=== PATIENT | male | born 1945 | race Caucasian/White ===

== ENCOUNTER 2020-09-04 14:48 | Inpatient (IN) | payer OTHER ==
[2020-09-04] MEDS ORDERED: SODIUM CHLORIDE 1,000 ML IV ONE (15:19)
[2020-09-04 15:54] LABS: VENOUS BASE EXCESS 9.2 mmol/L (-2-2); VENOUS O2 SATURATION 60.6 % (70-80); VENOUS PH 7.41 (7.310-7.410)
[2020-09-04 16:01] LABS: BASO % 0.4 % (0-2.0); EOS % 0.8 % (0-4.5); HEMATOCRIT 24.5 % (35.4-49); HEMOGLOBIN 7.6 GM/dL (11.7-16.9); LYMPH % 7.4 % (8-40); MCH 27.6 pg (25.7-33.7); MCHC 31.1 g/dl (32.0-35.9); MEAN CELL VOLUME 88.7 fl (80-96); MEAN PLT VOLUME 8.6 fl (7.5-11.1); NEUT % 85.4 % (42.8-82.8); PLATELET COUNT 392 K/MM3 (134-434); RBC 2.76 M/mm3 (4.00-5.60); RDW 15.9 % (11.9-15.9); WHITE BLOOD COUNT 12.8 K/mm3 (4.0-10.0)
[2020-09-04 16:14] LABS: CHLORIDE 114 mmol/L (98-107); SODIUM 152 mmol/L (136-145)
[2020-09-04 16:17] LABS: ALBUMIN 1.9 g/dl (3.4-5.0); ANION GAP 4 MMOL/L (8-16); CALCIUM 9.7 mg/dL (8.5-10.1); CO2 33 mmol/L (21-32)
[2020-09-04 16:18] LABS: BLOOD UREA NITROGEN 77.2 mg/dL (7-18); GLUCOSE,RANDOM 191 mg/dL (74-106)
[2020-09-04 16:20] LABS: SGOT/AST 24 U/L (15-37); SGPT/ALT 18 U/L (13-61)
[2020-09-04 16:21] LABS: CREATININE 0.9 mg/dL (0.55-1.3)
[2020-09-04 16:22] LABS: BILIRUBIN,TOTAL 0.2 mg/dL (0.2-1); TOT PROT 6.8 g/dl (6.4-8.2)
[2020-09-04 16:23] LABS: ALK PHOS 91 U/L (45-117); LACTIC ACID 2.1 mmol/L (0.4-2.0)
[2020-09-04 16:49] LABS: INR 1.57 (0.83-1.09); PROTHROMBIN TIME (PATIENT) 19.1 SEC (9.7-13.0)
[2020-09-04 16:53] LABS: ACTIVATED PTT 37.9 SECONDS (25.2-36.5)
[2020-09-04 18:53] LABS: EPI CELLS >36 /uL (0-25.1); HYALINE CASTS 25 /uL (0-3.1); PH,URINE 6.5 (5.0-8.0); URINE APPEARANCE TURBID; URINE BILIRUBIN 1+ (NEGATIVE); URINE COLOR RED; URINE GLUCOSE (UA) NEGATIVE (NEGATIVE); URINE KETONE NEGATIVE (NEGATIVE); URINE LEUK ESTERASE 2+ (NEGATIVE); URINE NITRITE POSITIVE (NEGATIVE); URINE PROTEIN 3+ (NEGATIVE); URINE UROBILINOGEN 0.2 mg/dL (0.2-1.0); URINE WBC 300 /uL (0-25.8)
[2020-09-04 19:21] LABS: URINE BACTERIA 29.6 /uL (0-1359); URINE RBC 44925 /uL (0-23.9)
[2020-09-04] MEDS ORDERED: VANCOMYCIN 1 GM in D5W (PRE-DOCKED) 1,000 MG/250 ML IVPB ONE (19:54)
[2020-09-04] MEDS ORDERED: PIPERACILLIN/TAZOB 4.5 GM 4.5 GM in DEXTROSE 5%-WATER 100 ML IVPB ONE (19:54)
[2020-09-04] MEDS ORDERED: PIPERACILLIN/TAZOB 4.5 GM 4.5 GM/100 ML BAG IVPB ONE (19:57)
[2020-09-04] MEDS ORDERED: VANCOMYCIN 1 GRAM (PRE-DOCKED) 1,000 MG/250 ML BAG IVPB ONE (19:58)
[2020-09-04] MEDS ORDERED: LACTATED RINGERS SOLUTION 1000 ML INFUS.BAG IV STA (19:58)
[2020-09-04] MEDS ORDERED: LACTATED RINGERS SOLUTION 1,000 ML/1,000 ML INFUS.BAG IV SCH (20:00)
[2020-09-04] MEDS ORDERED: ACETAMINOPHEN 1000 MG/100 ML VIAL (NON FORMULARY) IVPB ONE (21:07)
[2020-09-04] MEDS ORDERED: ACETAMINOPHEN INJECTION 100 ML IVPB ONE (21:15)
[2020-09-04] MEDS ORDERED: DEXAMETHASONE SOD PHOSPHATE 10 MG/1 ML VIAL IVPUSH ONE (21:30)
[2020-09-04] MEDS ORDERED: DEXAMETHASONE SOD PHOSPHATE 10 MG/1 ML VIAL ONE (22:02)
[2020-09-05 03:46] LABS: HEMOGLOBIN 7.2 GM/dL (11.7-16.9); MCH 27.9 pg (25.7-33.7); MCHC 31.3 g/dl (32.0-35.9); MEAN PLT VOLUME 8.7 fl (7.5-11.1); PLATELET COUNT 288 K/MM3 (134-434); RBC 2.58 M/mm3 (4.00-5.60); RDW 16.2 % (11.9-15.9); WHITE BLOOD COUNT 9.2 K/mm3 (4.0-10.0)
[2020-09-05 04:06] LABS: CALCIUM 9.3 mg/dL (8.5-10.1)
[2020-09-05 04:07] LABS: ALBUMIN 1.6 g/dl (3.4-5.0); BLOOD UREA NITROGEN 64.3 mg/dL (7-18)
[2020-09-05 04:10] LABS: CREATININE 0.8 mg/dL (0.55-1.3)
[2020-09-05 04:12] LABS: BILIRUBIN,TOTAL 0.2 mg/dL (0.2-1); TOT PROT 5.8 g/dl (6.4-8.2)
[2020-09-05] MEDS ORDERED: PIPERACILLIN/TAZOB 3.375 GM 3.375 GM/50 ML BAG IVPB ONE ×2 (05:44→09:22)
[2020-09-05] MEDS ORDERED: LACTATED RINGERS SOLUTION 1,000 ML IV SCH (06:00)
[2020-09-05] MEDS: PIPERACILLIN/TAZOB 3.375 GM 3.375 GM in DEXTROSE 5%-WATER - 50 ML IVPB SCH ×4 (06:12→17:00)
[2020-09-05] MEDS: DEXTROSE 5%-0.45% SALINE 1,000 ML IV SCH (06:12)
[2020-09-05] MEDS ORDERED: ALBUTEROL SO4 2.5/IPRATROPIUM 0.5 INH SOL 3 ML VIAL.NEB. NEB PRN (06:18)
[2020-09-05 06:49] LABS: PHOSPHOROUS 3.2 mg/dL (2.5-4.9)
[2020-09-05] MEDS: INSULIN SLIDING SCALE (NOVOLOG) 1 VIAL SQ SCH ×4 (07:44→23:44)
[2020-09-05] MEDS: VALPROATE SODIUM 250 MG/5 ML UNIT DOSE CUP GT SCH ×3 (07:53→23:41)
[2020-09-05] MEDS ORDERED: ASCORBIC ACID 500 MG TABLET (FP) ONE (09:21)
[2020-09-05] MEDS ORDERED: ZINC SULFATE 220 MG CAPSULE (FP) ONE (09:21)
[2020-09-05] MEDS ORDERED: clonazePAM 0.5 MG TABLET ONE (09:21)
[2020-09-05] MEDS ORDERED: METOPROLOL TARTRATE 50 MG TABLET (FP) ONE (09:22)
[2020-09-05] MEDS ORDERED: DEXAMETHASONE SOD PHOSPHATE 4 MG/1 ML VIAL ONE (09:22)
[2020-09-05] MEDS: METOPROLOL TARTRATE 50 MG TABLET (FP) PO SCH ×2 (09:35→23:40)
[2020-09-05] MEDS: clonazePAM 0.25 MG ODT TABLETS GT SCH ×2 (09:35→23:40)
[2020-09-05] MEDS: ASCORBIC ACID 500 MG TABLET (FP) PO SCH (09:35)
[2020-09-05] MEDS: DEXAMETHASONE 4 MG TABLET (FP) PO SCH (09:35)
[2020-09-05] MEDS: ZINC SULFATE 220 MG CAPSULE (FP) PO SCH (09:35)
[2020-09-05] MEDS ORDERED: DEXTROSE 5%-WATER - 50 ML IVPB ONE (16:02)
[2020-09-05] MEDS ORDERED: PIPERACILLIN/TAZOBACTAM 3.375 GM VIAL IVPB ONE (16:02)
[2020-09-05 18:14] LABS: HEMATOCRIT 23.6 % (35.4-49); HEMOGLOBIN 7.5 GM/dL (11.7-16.9); MCH 28.1 pg (25.7-33.7); MCHC 31.7 g/dl (32.0-35.9); MEAN CELL VOLUME 88.6 fl (80-96); MEAN PLT VOLUME 8.9 fl (7.5-11.1); PLATELET COUNT 307 K/MM3 (134-434); RBC 2.66 M/mm3 (4.00-5.60); RDW 15.5 % (11.9-15.9); WHITE BLOOD COUNT 7.8 K/mm3 (4.0-10.0)
[2020-09-05] MEDS: VANCOMYCIN 1 GRAM (PRE-DOCKED) 1,000 MG/250 ML BAG IVPB SCH (22:15)
[2020-09-05] MEDS: ATORVASTATIN CA 40 MG TABLET (FP) PO SCH (23:39)
[2020-09-05] MEDS ORDERED: PT OWN MED DRAWER 7, Y5N ONE (23:43)
[2020-09-05] MEDS: DOXAZOSIN MESYLATE 1 MG TABLET PO SCH (23:50)
[2020-09-06] MEDS ORDERED: PIPERACILLIN/TAZOB 3.375 GM 3.375 GM in DEXTROSE 5%-WATER - 50 ML IVPB SCH (02:00)
[2020-09-06] MEDS ORDERED: DEXTROSE 5%-WATER - 50 ML IVPB ONE ×3 (02:36→17:52)
[2020-09-06] MEDS ORDERED: PIPERACILLIN/TAZOBACTAM 3.375 GM VIAL IVPB ONE ×3 (02:36→17:51)
[2020-09-06] MEDS: PIPERACILLIN/TAZOB 3.375 GM 3.375 GM in DEXTROSE 5%-WATER - 50 ML IVPB SCH ×3 (02:39→17:55)
[2020-09-06] MEDS: VALPROATE SODIUM 250 MG/5 ML UNIT DOSE CUP GT SCH ×3 (06:39→22:14)
[2020-09-06] MEDS: DEXTROSE 5%-0.45% SALINE 1,000 ML IV SCH ×2 (06:40→17:54)
[2020-09-06] MEDS: INSULIN SLIDING SCALE (NOVOLOG) 1 VIAL SQ SCH ×4 (06:47→22:15)
[2020-09-06 09:06] LABS: HEMATOCRIT 24.1 % (35.4-49); HEMOGLOBIN 7.6 GM/dL (11.7-16.9); MCH 28.2 pg (25.7-33.7); MCHC 31.6 g/dl (32.0-35.9); MEAN CELL VOLUME 89.4 fl (80-96); MEAN PLT VOLUME 9.1 fl (7.5-11.1); PLATELET COUNT 298 K/MM3 (134-434); RDW 16.2 % (11.9-15.9)
[2020-09-06 09:09] LABS: WHITE BLOOD COUNT 10.7 K/mm3 (4.0-10.0)
[2020-09-06 09:14] LABS: ALBUMIN 1.7 g/dl (3.4-5.0); BLOOD UREA NITROGEN 55.2 mg/dL (7-18); CALCIUM 9.1 mg/dL (8.5-10.1)
[2020-09-06 09:15] LABS: MAGNESIUM 2.3 mg/dL (1.8-2.4)
[2020-09-06 09:18] LABS: CREATININE 0.7 mg/dL (0.55-1.3); PHOSPHOROUS 2.5 mg/dL (2.5-4.9)
[2020-09-06 09:19] LABS: BILIRUBIN,TOTAL 0.5 mg/dL (0.2-1); TOT PROT 6.1 g/dl (6.4-8.2)
[2020-09-06] MEDS: DEXAMETHASONE 4 MG TABLET (FP) PO SCH (10:24)
[2020-09-06] MEDS: COLLAGENASE CLOSTRIDIUM HIST. 30 GRAMS TUBE TP SCH (10:26)
[2020-09-06] MEDS: ZINC SULFATE 220 MG CAPSULE (FP) PO SCH (10:26)
[2020-09-06] MEDS: ASCORBIC ACID 500 MG TABLET (FP) PO SCH (10:26)
[2020-09-06] MEDS: METOPROLOL TARTRATE 50 MG TABLET (FP) PO SCH ×2 (10:26→22:14)
[2020-09-06] MEDS: clonazePAM 0.25 MG ODT TABLETS GT SCH ×2 (11:03→22:14)
[2020-09-06 13:52] LABS: HEMATOCRIT 27.1 % (35.4-49); HEMOGLOBIN 8.5 GM/dL (11.7-16.9); MCH 28.1 pg (25.7-33.7); MCHC 31.2 g/dl (32.0-35.9); MEAN CELL VOLUME 90.2 fl (80-96); MEAN PLT VOLUME 8.7 fl (7.5-11.1); PLATELET COUNT 272 K/MM3 (134-434); RBC 3.01 M/mm3 (4.00-5.60); RDW 16.6 % (11.9-15.9); WHITE BLOOD COUNT 8.5 K/mm3 (4.0-10.0)
[2020-09-06 15:16] VITALS: BMI 18.8
[2020-09-06] MEDS ORDERED: PT OWN MED DRAWER 7, Y5N ONE (16:19)
[2020-09-06] MEDS: VANCOMYCIN 1 GRAM (PRE-DOCKED) 1,000 MG/250 ML BAG IVPB SCH (20:43)
[2020-09-06] MEDS: ATORVASTATIN CA 40 MG TABLET (FP) PO SCH (22:14)
[2020-09-06] MEDS: DOXAZOSIN MESYLATE 1 MG TABLET PO SCH (22:14)
[2020-09-06] MEDS ORDERED: VANCOMYCIN 1,000 MG in DEXTROSE 5%-WATER - 250 ML IVPB SCH (23:00)
[2020-09-07] MEDS ORDERED: DEXTROSE 5%-WATER - 50 ML IVPB ONE ×3 (01:47→17:38)
[2020-09-07] MEDS ORDERED: PIPERACILLIN/TAZOBACTAM 3.375 GM VIAL IVPB ONE ×3 (01:47→17:38)
[2020-09-07] MEDS: PIPERACILLIN/TAZOB 3.375 GM 3.375 GM in DEXTROSE 5%-WATER - 50 ML IVPB SCH ×3 (01:57→17:39)
[2020-09-07] MEDS: VALPROATE SODIUM 250 MG/5 ML UNIT DOSE CUP GT SCH ×3 (06:40→22:22)
[2020-09-07] MEDS: DEXTROSE 5%-0.45% SALINE 1,000 ML IV SCH ×2 (06:40→23:58)
[2020-09-07] MEDS: INSULIN SLIDING SCALE (NOVOLOG) 1 VIAL SQ SCH ×4 (06:41→22:22)
[2020-09-07] MEDS ORDERED: AMINO ACIDS/PROTEIN HYDROLYS 30 ML LIQUID.PKT NGT SCH (08:00)
[2020-09-07] MEDS ORDERED: PT OWN MED DRAWER 7, Y5N ONE (08:29)
[2020-09-07] MEDS: AMINO ACIDS/PROTEIN HYDROLYS 30 ML LIQUID.PKT GT SCH (08:38)
[2020-09-07] MEDS: clonazePAM 0.25 MG ODT TABLETS GT SCH (09:28)
[2020-09-07] MEDS: DEXAMETHASONE 4 MG TABLET (FP) PO SCH (09:28)
[2020-09-07] MEDS: METOPROLOL TARTRATE 50 MG TABLET (FP) PO SCH ×2 (09:28→22:21)
[2020-09-07] MEDS: ASCORBIC ACID 500 MG TABLET (FP) PO SCH (09:28)
[2020-09-07] MEDS: COLLAGENASE CLOSTRIDIUM HIST. 30 GRAMS TUBE TP SCH (09:29)
[2020-09-07] MEDS: ZINC SULFATE 220 MG CAPSULE (FP) PO SCH (09:29)
[2020-09-07] MEDS ORDERED: MULTIVIT-MINERALS ORAL LIQUID NGT SCH (10:00)
[2020-09-07 12:40] LABS: BASO % 0.2 % (0-2.0); HEMATOCRIT 24.8 % (35.4-49); HEMOGLOBIN 7.9 GM/dL (11.7-16.9); LYMPH % 7.7 % (8-40); MCH 28.1 pg (25.7-33.7); MCHC 31.9 g/dl (32.0-35.9); MEAN CELL VOLUME 88.2 fl (80-96); MEAN PLT VOLUME 8.4 fl (7.5-11.1); MONO % 4.8 % (3.8-10.2); NEUT % 86.3 % (42.8-82.8); PLATELET COUNT 284 K/MM3 (134-434); RBC 2.82 M/mm3 (4.00-5.60); RDW 16.1 % (11.9-15.9)
[2020-09-07 12:53] LABS: CALCIUM 8.9 mg/dL (8.5-10.1)
[2020-09-07 12:54] LABS: ALBUMIN 1.6 g/dl (3.4-5.0); BLOOD UREA NITROGEN 38.5 mg/dL (7-18)
[2020-09-07 12:57] LABS: CREATININE 0.6 mg/dL (0.55-1.3); PHOSPHOROUS 2.5 mg/dL (2.5-4.9)
[2020-09-07 12:58] LABS: BILIRUBIN,TOTAL 0.2 mg/dL (0.2-1)
[2020-09-07 12:59] LABS: TOT PROT 5.8 g/dl (6.4-8.2)
[2020-09-07] MEDS: MULTIVIT-MINERALS ORAL LIQUID GT SCH (13:46)
[2020-09-07] MEDS ORDERED: VANCOMYCIN 1 GM in D5W (PRE-DOCKED) 1,000 MG/250 ML IVPB ONE (14:06)
[2020-09-07] MEDS: DOXAZOSIN MESYLATE 1 MG TABLET PO SCH (22:21)
[2020-09-07] MEDS: ATORVASTATIN CA 40 MG TABLET (FP) PO SCH (22:21)
[2020-09-07] MEDS: clonazePAM 0.25 MG ODT TABLETS SL SCH (22:55)
[2020-09-08] MEDS ORDERED: DEXTROSE 5%-WATER - 50 ML IVPB ONE ×3 (03:12→17:21)
[2020-09-08] MEDS ORDERED: PIPERACILLIN/TAZOBACTAM 3.375 GM VIAL IVPB ONE ×3 (03:12→17:21)
[2020-09-08] MEDS: PIPERACILLIN/TAZOB 3.375 GM 3.375 GM in DEXTROSE 5%-WATER - 50 ML IVPB SCH ×3 (03:17→17:28)
[2020-09-08] MEDS: VALPROATE SODIUM 250 MG/5 ML UNIT DOSE CUP GT SCH ×3 (06:30→21:55)
[2020-09-08] MEDS: INSULIN SLIDING SCALE (NOVOLOG) 1 VIAL SQ SCH ×5 (06:33→21:56)
[2020-09-08 08:21] LABS: HEMATOCRIT 21.3 % (35.4-49); MCH 28.4 pg (25.7-33.7); MEAN CELL VOLUME 88.7 fl (80-96); MEAN PLT VOLUME 7.9 fl (7.5-11.1); PLATELET COUNT 258 K/MM3 (134-434); RDW 15.6 % (11.9-15.9); WHITE BLOOD COUNT 5.5 K/mm3 (4.0-10.0)
[2020-09-08 08:59] LABS: HEMOGLOBIN 6.8 GM/dL (11.7-16.9)
[2020-09-08 09:04] LABS: CALCIUM 8.4 mg/dL (8.5-10.1)
[2020-09-08 09:05] LABS: ALBUMIN 1.6 g/dl (3.4-5.0); BLOOD UREA NITROGEN 32.7 mg/dL (7-18); MAGNESIUM 1.9 mg/dL (1.8-2.4)
[2020-09-08 09:08] LABS: CREATININE 0.5 mg/dL (0.55-1.3); PHOSPHOROUS 1.8 mg/dL (2.5-4.9)
[2020-09-08 09:09] LABS: BILIRUBIN,TOTAL 0.2 mg/dL (0.2-1)
[2020-09-08 09:10] LABS: TOT PROT 5.3 g/dl (6.4-8.2)
[2020-09-08] MEDS ORDERED: PT OWN MED DRAWER 7, Y5N ONE (10:21)
[2020-09-08] MEDS: AMINO ACIDS/PROTEIN HYDROLYS 30 ML LIQUID.PKT GT SCH (10:23)
[2020-09-08] MEDS: clonazePAM 0.25 MG ODT TABLETS SL SCH ×2 (10:24→21:55)
[2020-09-08] MEDS: METOPROLOL TARTRATE 50 MG TABLET (FP) PO SCH ×2 (10:24→21:55)
[2020-09-08] MEDS: ASCORBIC ACID 500 MG TABLET (FP) PO SCH (10:24)
[2020-09-08] MEDS: DEXTROSE 5%-0.45% SALINE 1,000 ML IV SCH (10:25)
[2020-09-08] MEDS: ZINC SULFATE 220 MG CAPSULE (FP) PO SCH (10:25)
[2020-09-08] MEDS: DEXAMETHASONE 4 MG TABLET (FP) PO SCH (10:25)
[2020-09-08] MEDS: COLLAGENASE CLOSTRIDIUM HIST. 30 GRAMS TUBE TP SCH (10:26)
[2020-09-08] MEDS: MULTIVIT-MINERALS ORAL LIQUID GT SCH (10:26)
[2020-09-08] MEDS ORDERED: VANCOMYCIN 1 GM in D5W (PRE-DOCKED) 1,000 MG/250 ML IVPB ONE ×2 (14:05→19:00)
[2020-09-08 18:44] LABS: HEMATOCRIT 28.2 % (35.4-49); HEMOGLOBIN 9.2 GM/dL (11.7-16.9); MCH 28.9 pg (25.7-33.7); MCHC 32.6 g/dl (32.0-35.9); MEAN CELL VOLUME 88.6 fl (80-96); MEAN PLT VOLUME 8.1 fl (7.5-11.1); PLATELET COUNT 261 K/MM3 (134-434); RBC 3.19 M/mm3 (4.00-5.60); RDW 15.1 % (11.9-15.9); WHITE BLOOD COUNT 7.5 K/mm3 (4.0-10.0)
[2020-09-08] MEDS: ATORVASTATIN CA 40 MG TABLET (FP) PO SCH (21:55)
[2020-09-08] MEDS: DOXAZOSIN MESYLATE 1 MG TABLET PO SCH (21:56)
[2020-09-09] MEDS ORDERED: DEXTROSE 5%-WATER - 50 ML IVPB ONE ×3 (01:04→16:54)
[2020-09-09] MEDS ORDERED: PIPERACILLIN/TAZOBACTAM 3.375 GM VIAL IVPB ONE ×3 (01:04→16:54)
[2020-09-09] MEDS: PIPERACILLIN/TAZOB 3.375 GM 3.375 GM in DEXTROSE 5%-WATER - 50 ML IVPB SCH ×3 (01:25→16:59)
[2020-09-09] MEDS: DEXTROSE 5%-0.45% SALINE 1,000 ML IV SCH (05:17)
[2020-09-09] MEDS: VALPROATE SODIUM 250 MG/5 ML UNIT DOSE CUP GT SCH ×3 (06:47→22:46)
[2020-09-09] MEDS: INSULIN SLIDING SCALE (NOVOLOG) 1 VIAL SQ SCH ×4 (06:47→22:50)
[2020-09-09] MEDS: ASCORBIC ACID 500 MG TABLET (FP) PO SCH (10:58)
[2020-09-09] MEDS: DEXAMETHASONE 4 MG TABLET (FP) PO SCH (10:58)
[2020-09-09] MEDS: clonazePAM 0.25 MG ODT TABLETS SL SCH ×2 (10:58→22:46)
[2020-09-09] MEDS: ZINC SULFATE 220 MG CAPSULE (FP) PO SCH (10:59)
[2020-09-09] MEDS: METOPROLOL TARTRATE 50 MG TABLET (FP) PO SCH ×2 (10:59→22:46)
[2020-09-09] MEDS: COLLAGENASE CLOSTRIDIUM HIST. 30 GRAMS TUBE TP SCH (10:59)
[2020-09-09] MEDS: AMINO ACIDS/PROTEIN HYDROLYS 30 ML LIQUID.PKT GT SCH (10:59)
[2020-09-09] MEDS: MULTIVIT-MINERALS ORAL LIQUID GT SCH (11:01)
[2020-09-09 11:48] LABS: INR 1.14 (0.83-1.09); PROTHROMBIN TIME (PATIENT) 13.7 SEC (9.7-13.0)
[2020-09-09 11:50] LABS: ACTIVATED PTT 28.8 SECONDS (25.2-36.5)
[2020-09-09] MEDS ORDERED: PT OWN MED DRAWER 7, Y5N ONE ×2 (14:48→22:45)
[2020-09-09 16:00] LABS: CALCIUM 8.5 mg/dL (8.5-10.1)
[2020-09-09 16:01] LABS: BLOOD UREA NITROGEN 24.4 mg/dL (7-18)
[2020-09-09 16:04] LABS: CREATININE 0.5 mg/dL (0.55-1.3)
[2020-09-09 21:24] LABS: ARTERIAL BLD GAS O2 SATURATION 96.2 mmHg (95-98); ARTERIAL BLOOD GAS BASE EXCESS 0.8 mmol/L (-2-2); ARTERIAL BLOOD GAS PO2 91.3 mmHg (80-100); ARTERIAL BLOOD GAS pH 7.312 (7.350-7.450)
[2020-09-09 21:44] LABS: VENT MODE A/C; VENT RATE 12
[2020-09-09] MEDS: ATORVASTATIN CA 40 MG TABLET (FP) PO SCH (22:46)
[2020-09-09] MEDS: DOXAZOSIN MESYLATE 1 MG TABLET PO SCH (22:47)
[2020-09-10] MEDS ORDERED: PIPERACILLIN/TAZOBACTAM 3.375 GM VIAL IVPB ONE ×3 (02:11→17:13)
[2020-09-10] MEDS ORDERED: DEXTROSE 5%-WATER - 50 ML IVPB ONE ×3 (02:12→17:13)
[2020-09-10] MEDS: PIPERACILLIN/TAZOB 3.375 GM 3.375 GM in DEXTROSE 5%-WATER - 50 ML IVPB SCH ×3 (02:13→17:35)
[2020-09-10] MEDS: INSULIN SLIDING SCALE (NOVOLOG) 1 VIAL SQ SCH ×4 (06:00→21:51)
[2020-09-10] MEDS: VALPROATE SODIUM 250 MG/5 ML UNIT DOSE CUP GT SCH ×3 (06:11→21:35)
[2020-09-10] MEDS: AMINO ACIDS/PROTEIN HYDROLYS 30 ML LIQUID.PKT GT SCH (09:00)
[2020-09-10] MEDS: ZINC SULFATE 220 MG CAPSULE (FP) PO SCH (09:47)
[2020-09-10] MEDS: METOPROLOL TARTRATE 50 MG TABLET (FP) PO SCH ×2 (09:48→21:35)
[2020-09-10] MEDS: MULTIVIT-MINERALS ORAL LIQUID GT SCH (09:49)
[2020-09-10] MEDS: DEXAMETHASONE 4 MG TABLET (FP) PO SCH (09:50)
[2020-09-10] MEDS: ASCORBIC ACID 500 MG TABLET (FP) PO SCH (09:50)
[2020-09-10 09:57] LABS: VENOUS BASE EXCESS 6.8 mmol/L (-2-2); VENOUS O2 SATURATION 98.8 % (70-80); VENOUS PCO2 43.8 mmHg (38-52); VENOUS PH 7.471 (7.310-7.410)
[2020-09-10 10:22] LABS: ALBUMIN 1.8 g/dl (3.4-5.0); BASO % 0.5 % (0-2.0); CREATININE 0.5 mg/dL (0.55-1.3); EOS % 1.7 % (0-4.5); HEMATOCRIT 30.2 % (35.4-49); HEMOGLOBIN 9.8 GM/dL (11.7-16.9); MCH 28.9 pg (25.7-33.7); MCHC 32.4 g/dl (32.0-35.9); MEAN CELL VOLUME 89.1 fl (80-96); MEAN PLT VOLUME 8.5 fl (7.5-11.1); MONO % 5.8 % (3.8-10.2); PLATELET COUNT 276 K/MM3 (134-434); RBC 3.39 M/mm3 (4.00-5.60); RDW 15.9 % (11.9-15.9); WHITE BLOOD COUNT 10.2 K/mm3 (4.0-10.0)
[2020-09-10 10:24] LABS: BILIRUBIN,TOTAL 0.2 mg/dL (0.2-1)
[2020-09-10 10:25] LABS: BLOOD UREA NITROGEN 28.2 mg/dL (7-18); PHOSPHOROUS 1.8 mg/dL (2.5-4.9)
[2020-09-10 11:12] LABS: PLATELET ESTIMATE NORMAL
[2020-09-10] MEDS: clonazePAM 0.25 MG ODT TABLETS SL SCH (13:16)
[2020-09-10] MEDS ORDERED: morphine SULFATE 4 MG/ML VIAL IVPUSH ONE (13:29)
[2020-09-10] MEDS ORDERED: morphine SULFATE 4 MG/ML VIAL ONE (13:30)
[2020-09-10] MEDS: COLLAGENASE CLOSTRIDIUM HIST. 30 GRAMS TUBE TP SCH (15:05)
[2020-09-10] MEDS ORDERED: INSULIN (NOVOLOG) ASPART 100 UNITS/ML 10ML VIAL ONE (21:02)
[2020-09-10] MEDS: DOXAZOSIN MESYLATE 1 MG TABLET PO SCH (21:35)
[2020-09-10] MEDS: ATORVASTATIN CA 40 MG TABLET (FP) PO SCH (21:35)
[2020-09-10] MEDS ORDERED: clonazePAM 0.5 MG TABLET GT SCH (22:00)
[2020-09-10] MEDS ORDERED: clonazePAM 0.5 MG TABLET PO SCH (22:00)
[2020-09-11] MEDS ORDERED: PIPERACILLIN/TAZOBACTAM 3.375 GM VIAL IVPB ONE ×3 (01:15→16:52)
[2020-09-11] MEDS ORDERED: DEXTROSE 5%-WATER - 50 ML IVPB ONE ×3 (01:15→16:53)
[2020-09-11] MEDS: PIPERACILLIN/TAZOB 3.375 GM 3.375 GM in DEXTROSE 5%-WATER - 50 ML IVPB SCH ×3 (01:25→17:07)
[2020-09-11] MEDS: VALPROATE SODIUM 250 MG/5 ML UNIT DOSE CUP GT SCH ×3 (05:53→22:43)
[2020-09-11] MEDS: INSULIN SLIDING SCALE (NOVOLOG) 1 VIAL SQ SCH ×4 (05:59→22:45)
[2020-09-11] MEDS ORDERED: INSULIN (NOVOLOG) ASPART 100 UNITS/ML 10ML VIAL ONE (06:43)
[2020-09-11] MEDS: AMINO ACIDS/PROTEIN HYDROLYS 30 ML LIQUID.PKT GT SCH (09:10)
[2020-09-11] MEDS: MULTIVIT-MINERALS ORAL LIQUID GT SCH (09:26)
[2020-09-11] MEDS: DEXAMETHASONE 4 MG TABLET (FP) PO SCH (09:27)
[2020-09-11] MEDS: ASCORBIC ACID 500 MG TABLET (FP) PO SCH (09:27)
[2020-09-11] MEDS: METOPROLOL TARTRATE 50 MG TABLET (FP) PO SCH ×2 (09:28→22:44)
[2020-09-11] MEDS: ZINC SULFATE 220 MG CAPSULE (FP) PO SCH (09:28)
[2020-09-11 11:49] LABS: BASO % 0.3 % (0-2.0); EOS % 0.7 % (0-4.5); HEMATOCRIT 30.3 % (35.4-49); HEMOGLOBIN 9.8 GM/dL (11.7-16.9); LYMPH % 3.6 % (8-40); MCH 28.9 pg (25.7-33.7); MCHC 32.4 g/dl (32.0-35.9); MEAN CELL VOLUME 89.3 fl (80-96); MEAN PLT VOLUME 8.1 fl (7.5-11.1); MONO % 4.5 % (3.8-10.2); NEUT % 90.9 % (42.8-82.8); PLATELET COUNT 231 K/MM3 (134-434); RBC 3.39 M/mm3 (4.00-5.60); RDW 16.3 % (11.9-15.9); WHITE BLOOD COUNT 13.6 K/mm3 (4.0-10.0)
[2020-09-11 12:15] LABS: BLOOD UREA NITROGEN 28.8 mg/dL (7-18); CALCIUM 8.5 mg/dL (8.5-10.1)
[2020-09-11 12:16] LABS: ALBUMIN 1.8 g/dl (3.4-5.0)
[2020-09-11 12:19] LABS: CREATININE 0.5 mg/dL (0.55-1.3)
[2020-09-11 12:20] LABS: BILIRUBIN,TOTAL 0.2 mg/dL (0.2-1); TOT PROT 5.8 g/dl (6.4-8.2)
[2020-09-11] MEDS: APIXABAN 5 MG TABLET PEG SCH ×2 (14:09→22:43)
[2020-09-11] MEDS: COLLAGENASE CLOSTRIDIUM HIST. 30 GRAMS TUBE TP SCH (14:30)
[2020-09-11] MEDS: FUROSEMIDE 40 MG/4 ML INJECTABLE VIAL IVPUSH SCH (14:45)
[2020-09-11] MEDS ORDERED: PT OWN MED DRAWER 7, Y5N ONE (20:17)
[2020-09-11] MEDS: DOXAZOSIN MESYLATE 1 MG TABLET PO SCH (22:43)
[2020-09-11] MEDS: ATORVASTATIN CA 40 MG TABLET (FP) PO SCH (22:44)
[2020-09-12] MEDS ORDERED: PIPERACILLIN/TAZOBACTAM 3.375 GM VIAL IVPB ONE ×3 (01:04→17:09)
[2020-09-12] MEDS ORDERED: DEXTROSE 5%-WATER - 50 ML IVPB ONE ×3 (01:04→17:09)
[2020-09-12] MEDS: PIPERACILLIN/TAZOB 3.375 GM 3.375 GM in DEXTROSE 5%-WATER - 50 ML IVPB SCH ×3 (01:41→17:29)
[2020-09-12] MEDS: INSULIN SLIDING SCALE (NOVOLOG) 1 VIAL SQ SCH ×4 (06:43→21:30)
[2020-09-12] MEDS: VALPROATE SODIUM 250 MG/5 ML UNIT DOSE CUP GT SCH ×3 (06:43→21:29)
[2020-09-12 08:57] LABS: BASO % 0.4 % (0-2.0); EOS % 2.5 % (0-4.5); HEMATOCRIT 31.5 % (35.4-49); HEMOGLOBIN 10.3 GM/dL (11.7-16.9); LYMPH % 13.8 % (8-40); MCH 29.6 pg (25.7-33.7); MCHC 32.8 g/dl (32.0-35.9); MEAN CELL VOLUME 90.4 fl (80-96); MEAN PLT VOLUME 8.3 fl (7.5-11.1); MONO % 7.8 % (3.8-10.2); NEUT % 75.5 % (42.8-82.8); PLATELET COUNT 213 K/MM3 (134-434); RBC 3.48 M/mm3 (4.00-5.60); RDW 16.2 % (11.9-15.9); WHITE BLOOD COUNT 10.5 K/mm3 (4.0-10.0)
[2020-09-12 09:07] LABS: VENOUS O2 SATURATION 94.9 % (70-80); VENOUS PCO2 54.2 mmHg (38-52); VENOUS PH 7.438 (7.310-7.410)
[2020-09-12 09:26] LABS: BLOOD UREA NITROGEN 29.8 mg/dL (7-18); CALCIUM 8.9 mg/dL (8.5-10.1)
[2020-09-12 09:28] LABS: CREATININE 0.5 mg/dL (0.55-1.3)
[2020-09-12] MEDS ORDERED: PT OWN MED DRAWER 7, Y5N ONE ×2 (09:33→21:22)
[2020-09-12] MEDS: AMINO ACIDS/PROTEIN HYDROLYS 30 ML LIQUID.PKT GT SCH (09:43)
[2020-09-12] MEDS: MULTIVIT-MINERALS ORAL LIQUID GT SCH (09:44)
[2020-09-12] MEDS: APIXABAN 5 MG TABLET PEG SCH ×2 (09:45→21:29)
[2020-09-12] MEDS: METOPROLOL TARTRATE 50 MG TABLET (FP) PO SCH ×2 (09:45→21:29)
[2020-09-12] MEDS: ASCORBIC ACID 500 MG TABLET (FP) PO SCH (09:45)
[2020-09-12] MEDS: ZINC SULFATE 220 MG CAPSULE (FP) PO SCH (09:46)
[2020-09-12] MEDS: DEXAMETHASONE 4 MG TABLET (FP) PO SCH (09:46)
[2020-09-12] MEDS: COLLAGENASE CLOSTRIDIUM HIST. 30 GRAMS TUBE TP SCH (09:46)
[2020-09-12] MEDS: FUROSEMIDE 40 MG/4 ML INJECTABLE VIAL IVPUSH SCH (09:46)
[2020-09-12] MEDS: ACETAMINOPHEN 650 MG/20.3 ML ORAL SOLUTION (CUPS) GT PRN (09:47)
[2020-09-12] MEDS ORDERED: SODIUM POLYSTYRENE SULFONATE 15 GM/60 ML BOTTLE RC ONE (13:30)
[2020-09-12] MEDS ORDERED: SODIUM POLYSTYRENE SULFONATE 15 GM/60 ML BOTTLE PO ONE (14:30)
[2020-09-12] MEDS: ATORVASTATIN CA 40 MG TABLET (FP) PO SCH (21:29)
[2020-09-12] MEDS: DOXAZOSIN MESYLATE 1 MG TABLET PO SCH (21:30)
[2020-09-13] MEDS ORDERED: PIPERACILLIN/TAZOBACTAM 3.375 GM VIAL IVPB ONE ×3 (01:11→17:17)
[2020-09-13] MEDS ORDERED: DEXTROSE 5%-WATER - 50 ML IVPB ONE ×3 (01:12→17:17)
[2020-09-13] MEDS: PIPERACILLIN/TAZOB 3.375 GM 3.375 GM in DEXTROSE 5%-WATER - 50 ML IVPB SCH ×3 (01:23→17:24)
[2020-09-13] MEDS: VALPROATE SODIUM 250 MG/5 ML UNIT DOSE CUP GT SCH ×3 (05:51→21:17)
[2020-09-13] MEDS: INSULIN SLIDING SCALE (NOVOLOG) 1 VIAL SQ SCH ×4 (06:10→21:18)
[2020-09-13] MEDS ORDERED: PT OWN MED DRAWER 7, Y5N ONE ×2 (09:19→21:00)
[2020-09-13] MEDS: AMINO ACIDS/PROTEIN HYDROLYS 30 ML LIQUID.PKT GT SCH (09:21)
[2020-09-13] MEDS: FUROSEMIDE 40 MG/4 ML INJECTABLE VIAL IVPUSH SCH (09:21)
[2020-09-13] MEDS: DEXAMETHASONE 4 MG TABLET (FP) PO SCH (09:22)
[2020-09-13] MEDS: ZINC SULFATE 220 MG CAPSULE (FP) PO SCH (09:22)
[2020-09-13] MEDS: METOPROLOL TARTRATE 50 MG TABLET (FP) PO SCH ×2 (09:22→21:17)
[2020-09-13] MEDS: APIXABAN 5 MG TABLET PEG SCH ×2 (09:22→21:17)
[2020-09-13] MEDS: ASCORBIC ACID 500 MG TABLET (FP) PO SCH (09:22)
[2020-09-13] MEDS: COLLAGENASE CLOSTRIDIUM HIST. 30 GRAMS TUBE TP SCH (09:23)
[2020-09-13] MEDS: MULTIVIT-MINERALS ORAL LIQUID GT SCH (09:23)
[2020-09-13] MEDS: ACETAMINOPHEN 650 MG/20.3 ML ORAL SOLUTION (CUPS) GT PRN (09:44)
[2020-09-13 09:56] LABS: BASO % 0.4 % (0-2.0); EOS % 2.1 % (0-4.5); HEMATOCRIT 30.4 % (35.4-49); LYMPH % 6.1 % (8-40); MCH 29.2 pg (25.7-33.7); MEAN CELL VOLUME 88.5 fl (80-96); MEAN PLT VOLUME 8.1 fl (7.5-11.1); MONO % 6.6 % (3.8-10.2); NEUT % 84.8 % (42.8-82.8); PLATELET COUNT 221 K/MM3 (134-434); RBC 3.43 M/mm3 (4.00-5.60); RDW 16.3 % (11.9-15.9); WHITE BLOOD COUNT 11.7 K/mm3 (4.0-10.0)
[2020-09-13 10:33] LABS: CALCIUM 8.5 mg/dL (8.5-10.1)
[2020-09-13 10:34] LABS: CREATININE 0.3 mg/dL (0.55-1.3)
[2020-09-13] MEDS: ATORVASTATIN CA 40 MG TABLET (FP) PO SCH (21:17)
[2020-09-13] MEDS: DOXAZOSIN MESYLATE 1 MG TABLET PO SCH (21:17)
[2020-09-14] MEDS ORDERED: PIPERACILLIN/TAZOBACTAM 3.375 GM VIAL IVPB ONE ×3 (01:02→17:05)
[2020-09-14] MEDS ORDERED: DEXTROSE 5%-WATER - 50 ML IVPB ONE ×3 (01:02→17:05)
[2020-09-14] MEDS: PIPERACILLIN/TAZOB 3.375 GM 3.375 GM in DEXTROSE 5%-WATER - 50 ML IVPB SCH ×3 (01:06→17:26)
[2020-09-14] MEDS: INSULIN SLIDING SCALE (NOVOLOG) 1 VIAL SQ SCH ×4 (06:11→22:05)
[2020-09-14] MEDS: VALPROATE SODIUM 250 MG/5 ML UNIT DOSE CUP GT SCH ×3 (06:11→21:48)
[2020-09-14 08:54] LABS: HEMATOCRIT 26.3 % (35.4-49); HEMOGLOBIN 8.8 GM/dL (11.7-16.9); MCH 29.5 pg (25.7-33.7); MCHC 33.4 g/dl (32.0-35.9); MEAN CELL VOLUME 88.4 fl (80-96); MEAN PLT VOLUME 7.9 fl (7.5-11.1); PLATELET COUNT 170 K/MM3 (134-434); RBC 2.98 M/mm3 (4.00-5.60); RDW 16.6 % (11.9-15.9); WHITE BLOOD COUNT 6.5 K/mm3 (4.0-10.0)
[2020-09-14] MEDS ORDERED: PT OWN MED DRAWER 7, Y5N ONE ×2 (10:06→21:44)
[2020-09-14] MEDS: FUROSEMIDE 40 MG/4 ML INJECTABLE VIAL IVPUSH SCH (10:10)
[2020-09-14] MEDS: METOPROLOL TARTRATE 50 MG TABLET (FP) PO SCH ×2 (10:10→21:48)
[2020-09-14] MEDS: ASCORBIC ACID 500 MG TABLET (FP) PO SCH (10:10)
[2020-09-14] MEDS: ZINC SULFATE 220 MG CAPSULE (FP) PO SCH (10:10)
[2020-09-14] MEDS: APIXABAN 5 MG TABLET PEG SCH ×2 (10:10→21:45)
[2020-09-14] MEDS: DEXAMETHASONE 4 MG TABLET (FP) PO SCH (10:10)
[2020-09-14] MEDS: ACETAMINOPHEN 650 MG/20.3 ML ORAL SOLUTION (CUPS) GT PRN (10:11)
[2020-09-14] MEDS: AMINO ACIDS/PROTEIN HYDROLYS 30 ML LIQUID.PKT GT SCH (10:11)
[2020-09-14] MEDS: COLLAGENASE CLOSTRIDIUM HIST. 30 GRAMS TUBE TP SCH (10:11)
[2020-09-14] MEDS: MULTIVIT-MINERALS ORAL LIQUID GT SCH (10:11)
[2020-09-14 10:17] LABS: CALCIUM 8.8 mg/dL (8.5-10.1)
[2020-09-14 10:18] LABS: ALBUMIN 1.8 g/dl (3.4-5.0)
[2020-09-14 10:20] LABS: CREATININE 0.5 mg/dL (0.55-1.3); PHOSPHOROUS 2.3 mg/dL (2.5-4.9)
[2020-09-14 10:21] LABS: BILIRUBIN,TOTAL 0.2 mg/dL (0.2-1)
[2020-09-14 10:22] LABS: TOT PROT 5.5 g/dl (6.4-8.2)
[2020-09-14] MEDS ORDERED: NAPH,MB-DB/K PH,MBDB POWDER PACKET PO ONE (12:00)
[2020-09-14] MEDS: ATORVASTATIN CA 40 MG TABLET (FP) PO SCH (21:45)
[2020-09-14] MEDS: DOXAZOSIN MESYLATE 1 MG TABLET PO SCH (21:45)
[2020-09-15] MEDS ORDERED: PIPERACILLIN/TAZOBACTAM 3.375 GM VIAL IVPB ONE ×3 (00:54→17:15)
[2020-09-15] MEDS ORDERED: DEXTROSE 5%-WATER - 50 ML IVPB ONE ×3 (00:54→17:15)
[2020-09-15] MEDS: PIPERACILLIN/TAZOB 3.375 GM 3.375 GM in DEXTROSE 5%-WATER - 50 ML IVPB SCH ×3 (02:11→17:38)
[2020-09-15] MEDS: VALPROATE SODIUM 250 MG/5 ML UNIT DOSE CUP GT SCH ×3 (05:09→21:13)
[2020-09-15] MEDS: INSULIN SLIDING SCALE (NOVOLOG) 1 VIAL SQ SCH ×4 (06:10→23:16)
[2020-09-15] MEDS: ACETAMINOPHEN 650 MG/20.3 ML ORAL SOLUTION (CUPS) GT PRN ×2 (06:11→21:18)
[2020-09-15] MEDS: AMINO ACIDS/PROTEIN HYDROLYS 30 ML LIQUID.PKT GT SCH (07:52)
[2020-09-15 08:27] LABS: CHLORIDE 99 mmol/L (98-107); SODIUM 146 mmol/L (136-145)
[2020-09-15 08:29] LABS: CALCIUM 8.6 mg/dL (8.5-10.1)
[2020-09-15 08:30] LABS: BLOOD UREA NITROGEN 44.4 mg/dL (7-18); GLUCOSE,RANDOM 132 mg/dL (74-106)
[2020-09-15 08:33] LABS: CREATININE 0.5 mg/dL (0.55-1.3); SGOT/AST 21 U/L (15-37); SGPT/ALT 17 U/L (13-61)
[2020-09-15 08:34] LABS: BILIRUBIN,TOTAL 0.2 mg/dL (0.2-1)
[2020-09-15 08:35] LABS: TOT PROT 5.8 g/dl (6.4-8.2)
[2020-09-15 08:36] LABS: ALK PHOS 98 U/L (45-117)
[2020-09-15 08:50] LABS: ANION GAP 2 MMOL/L (8-16); CO2 > 45 mmol/L (21-32)
[2020-09-15] MEDS ORDERED: PT OWN MED DRAWER 7, Y5N ONE ×2 (09:40→21:11)
[2020-09-15] MEDS ORDERED: NAPH,MB-DB/K PH,MBDB POWDER PACKET PO ONE (10:15)
[2020-09-15] MEDS: FUROSEMIDE 40 MG/4 ML INJECTABLE VIAL IVPUSH SCH (10:24)
[2020-09-15] MEDS: ASCORBIC ACID 500 MG TABLET (FP) PO SCH (10:25)
[2020-09-15] MEDS: ZINC SULFATE 220 MG CAPSULE (FP) PO SCH (10:25)
[2020-09-15] MEDS: APIXABAN 5 MG TABLET PEG SCH ×2 (10:25→21:14)
[2020-09-15] MEDS: DEXAMETHASONE 4 MG TABLET (FP) PO SCH (10:25)
[2020-09-15] MEDS: MULTIVIT-MINERALS ORAL LIQUID GT SCH (10:28)
[2020-09-15] MEDS: METOPROLOL TARTRATE 50 MG TABLET (FP) PO SCH ×2 (10:28→21:14)
[2020-09-15 10:55] LABS: HEMATOCRIT 27.8 % (35.4-49); MCH 29.2 pg (25.7-33.7); MCHC 32.5 g/dl (32.0-35.9); MEAN CELL VOLUME 90.1 fl (80-96); MEAN PLT VOLUME 8.7 fl (7.5-11.1); PLATELET COUNT 179 K/MM3 (134-434); RBC 3.08 M/mm3 (4.00-5.60); RDW 16.7 % (11.9-15.9); WHITE BLOOD COUNT 6.5 K/mm3 (4.0-10.0)
[2020-09-15] MEDS: COLLAGENASE CLOSTRIDIUM HIST. 30 GRAMS TUBE TP SCH (14:49)
[2020-09-15] MEDS: ATORVASTATIN CA 40 MG TABLET (FP) PO SCH (21:14)
[2020-09-15] MEDS: DOXAZOSIN MESYLATE 1 MG TABLET PO SCH (21:14)
[2020-09-16] MEDS ORDERED: PIPERACILLIN/TAZOBACTAM 3.375 GM VIAL IVPB ONE ×2 (01:09→10:08)
[2020-09-16] MEDS ORDERED: DEXTROSE 5%-WATER - 50 ML IVPB ONE ×2 (01:10→10:08)
[2020-09-16] MEDS: PIPERACILLIN/TAZOB 3.375 GM 3.375 GM in DEXTROSE 5%-WATER - 50 ML IVPB SCH ×2 (01:54→10:23)
[2020-09-16] MEDS: VALPROATE SODIUM 250 MG/5 ML UNIT DOSE CUP GT SCH ×3 (05:05→22:31)
[2020-09-16] MEDS: INSULIN SLIDING SCALE (NOVOLOG) 1 VIAL SQ SCH ×4 (06:13→22:38)
[2020-09-16 08:34] LABS: HEMATOCRIT 25.2 % (35.4-49); HEMOGLOBIN 8.3 GM/dL (11.7-16.9); MCH 29.6 pg (25.7-33.7); MCHC 32.9 g/dl (32.0-35.9); MEAN CELL VOLUME 89.9 fl (80-96); MEAN PLT VOLUME 8.6 fl (7.5-11.1); PLATELET COUNT 151 K/MM3 (134-434); RDW 16.6 % (11.9-15.9); WHITE BLOOD COUNT 5.7 K/mm3 (4.0-10.0)
[2020-09-16 09:05] LABS: BLOOD UREA NITROGEN 42.3 mg/dL (7-18); CALCIUM 8.4 mg/dL (8.5-10.1); MAGNESIUM 2.1 mg/dL (1.8-2.4)
[2020-09-16 09:08] LABS: CREATININE 0.4 mg/dL (0.55-1.3)
[2020-09-16] MEDS: FUROSEMIDE 40 MG/4 ML INJECTABLE VIAL IVPUSH SCH (10:21)
[2020-09-16] MEDS: AMINO ACIDS/PROTEIN HYDROLYS 30 ML LIQUID.PKT GT SCH (10:21)
[2020-09-16] MEDS: METOPROLOL TARTRATE 50 MG TABLET (FP) PO SCH ×2 (10:21→22:31)
[2020-09-16] MEDS: ASCORBIC ACID 500 MG TABLET (FP) PO SCH (10:21)
[2020-09-16] MEDS: DEXAMETHASONE 4 MG TABLET (FP) PO SCH (10:22)
[2020-09-16] MEDS: ZINC SULFATE 220 MG CAPSULE (FP) PO SCH (10:22)
[2020-09-16] MEDS: APIXABAN 5 MG TABLET PEG SCH ×2 (10:22→22:31)
[2020-09-16] MEDS: MULTIVIT-MINERALS ORAL LIQUID GT SCH (10:23)
[2020-09-16] MEDS: COLLAGENASE CLOSTRIDIUM HIST. 30 GRAMS TUBE TP SCH (10:23)
[2020-09-16] MEDS ORDERED: NAPH,MB-DB/K PH,MBDB POWDER PACKET PO ONE (10:45)
[2020-09-16] MEDS ORDERED: PT OWN MED DRAWER 7, Y5N ONE ×3 (13:08→22:20)
[2020-09-16] MEDS: CEFTAZIDIME/AVIBACTAM 2.5 GM in DEXTROSE 5%-WATER - 250 ML IVPB SCH ×2 (13:10→18:31)
[2020-09-16] MEDS: DOXAZOSIN MESYLATE 1 MG TABLET PO SCH (22:31)
[2020-09-16] MEDS: ATORVASTATIN CA 40 MG TABLET (FP) PO SCH (22:31)
[2020-09-17] MEDS ORDERED: PT OWN MED DRAWER 7, Y5N ONE ×3 (01:52→22:36)
[2020-09-17] MEDS: CEFTAZIDIME/AVIBACTAM 2.5 GM in DEXTROSE 5%-WATER - 250 ML IVPB SCH ×3 (02:18→17:37)
[2020-09-17] MEDS: VALPROATE SODIUM 250 MG/5 ML UNIT DOSE CUP GT SCH ×3 (06:05→23:15)
[2020-09-17] MEDS: INSULIN SLIDING SCALE (NOVOLOG) 1 VIAL SQ SCH ×4 (06:33→23:37)
[2020-09-17 11:05] LABS: BASO % 0.9 % (0-2.0); EOS % 1.4 % (0-4.5); HEMATOCRIT 29.3 % (35.4-49); HEMOGLOBIN 9.5 GM/dL (11.7-16.9); LYMPH % 15.7 % (8-40); MCH 29.1 pg (25.7-33.7); MCHC 32.4 g/dl (32.0-35.9); MEAN CELL VOLUME 89.7 fl (80-96); MEAN PLT VOLUME 8.5 fl (7.5-11.1); MONO % 6.7 % (3.8-10.2); NEUT % 75.3 % (42.8-82.8); PLATELET COUNT 149 K/MM3 (134-434); RBC 3.27 M/mm3 (4.00-5.60); RDW 16.3 % (11.9-15.9); WHITE BLOOD COUNT 7.1 K/mm3 (4.0-10.0)
[2020-09-17 11:28] LABS: CALCIUM 8.6 mg/dL (8.5-10.1)
[2020-09-17 11:29] LABS: BLOOD UREA NITROGEN 35.6 mg/dL (7-18)
[2020-09-17 11:32] LABS: BILIRUBIN,TOTAL 0.2 mg/dL (0.2-1); TOT PROT 5.9 g/dl (6.4-8.2)
[2020-09-17] MEDS: ASCORBIC ACID 500 MG TABLET (FP) PO SCH (11:38)
[2020-09-17] MEDS: METOPROLOL TARTRATE 50 MG TABLET (FP) PO SCH ×2 (11:38→23:15)
[2020-09-17] MEDS: DEXAMETHASONE 4 MG TABLET (FP) PO SCH (11:38)
[2020-09-17] MEDS: APIXABAN 5 MG TABLET PEG SCH ×2 (11:38→23:14)
[2020-09-17] MEDS: FUROSEMIDE 40 MG/4 ML INJECTABLE VIAL IVPUSH SCH (11:39)
[2020-09-17] MEDS: AMINO ACIDS/PROTEIN HYDROLYS 30 ML LIQUID.PKT GT SCH (11:39)
[2020-09-17] MEDS: MULTIVIT-MINERALS ORAL LIQUID GT SCH (11:40)
[2020-09-17 11:41] LABS: CREATININE 0.4 mg/dL (0.55-1.3)
[2020-09-17] MEDS: ZINC SULFATE 220 MG CAPSULE (FP) PO SCH (11:44)
[2020-09-17] MEDS: COLLAGENASE CLOSTRIDIUM HIST. 30 GRAMS TUBE TP SCH (11:44)
[2020-09-17] MEDS: ATORVASTATIN CA 40 MG TABLET (FP) PO SCH (23:15)
[2020-09-17] MEDS: DOXAZOSIN MESYLATE 1 MG TABLET PO SCH (23:58)
[2020-09-18] MEDS ORDERED: PT OWN MED DRAWER 7, Y5N ONE ×4 (02:33→21:47)
[2020-09-18] MEDS: CEFTAZIDIME/AVIBACTAM 2.5 GM in DEXTROSE 5%-WATER - 250 ML IVPB SCH ×3 (02:39→17:31)
[2020-09-18] MEDS: VALPROATE SODIUM 250 MG/5 ML UNIT DOSE CUP GT SCH ×3 (05:00→21:50)
[2020-09-18] MEDS: INSULIN SLIDING SCALE (NOVOLOG) 1 VIAL SQ SCH ×4 (06:08→21:57)
[2020-09-18] MEDS: AMINO ACIDS/PROTEIN HYDROLYS 30 ML LIQUID.PKT GT SCH (09:00)
[2020-09-18] MEDS: ASCORBIC ACID 500 MG TABLET (FP) PO SCH (09:41)
[2020-09-18] MEDS: METOPROLOL TARTRATE 50 MG TABLET (FP) PO SCH ×2 (09:41→21:49)
[2020-09-18] MEDS: DEXAMETHASONE 4 MG TABLET (FP) PO SCH (09:42)
[2020-09-18] MEDS: MULTIVIT-MINERALS ORAL LIQUID GT SCH (09:42)
[2020-09-18] MEDS: ZINC SULFATE 220 MG CAPSULE (FP) PO SCH (09:43)
[2020-09-18] MEDS: FUROSEMIDE 40 MG/4 ML INJECTABLE VIAL IVPUSH SCH (09:43)
[2020-09-18] MEDS: APIXABAN 5 MG TABLET PEG SCH ×2 (09:43→21:49)
[2020-09-18 09:53] LABS: CALCIUM 8.7 mg/dL (8.5-10.1)
[2020-09-18 09:55] LABS: ALBUMIN 1.8 g/dl (3.4-5.0)
[2020-09-18 09:58] LABS: CREATININE 0.3 mg/dL (0.55-1.3)
[2020-09-18 09:59] LABS: BILIRUBIN,TOTAL 0.2 mg/dL (0.2-1)
[2020-09-18 10:43] LABS: BASO % 0.4 % (0-2.0); EOS % 1.2 % (0-4.5); HEMATOCRIT 30.2 % (35.4-49); HEMOGLOBIN 9.9 GM/dL (11.7-16.9); LYMPH % 17.1 % (8-40); MCH 29.1 pg (25.7-33.7); MCHC 32.7 g/dl (32.0-35.9); MEAN CELL VOLUME 88.9 fl (80-96); MEAN PLT VOLUME 8.6 fl (7.5-11.1); MONO % 6.5 % (3.8-10.2); NEUT % 74.8 % (42.8-82.8); PLATELET COUNT 146 K/MM3 (134-434); RDW 16.4 % (11.9-15.9); WHITE BLOOD COUNT 6.8 K/mm3 (4.0-10.0)
[2020-09-18] MEDS: COLLAGENASE CLOSTRIDIUM HIST. 30 GRAMS TUBE TP SCH (13:30)
[2020-09-18] MEDS: DOXAZOSIN MESYLATE 1 MG TABLET PO SCH (21:49)
[2020-09-18] MEDS: ATORVASTATIN CA 40 MG TABLET (FP) PO SCH (21:50)
[2020-09-19] MEDS ORDERED: PT OWN MED DRAWER 7, Y5N ONE ×3 (02:14→21:58)
[2020-09-19] MEDS: CEFTAZIDIME/AVIBACTAM 2.5 GM in DEXTROSE 5%-WATER - 250 ML IVPB SCH ×3 (02:59→17:28)
[2020-09-19] MEDS: VALPROATE SODIUM 250 MG/5 ML UNIT DOSE CUP GT SCH ×3 (05:57→22:35)
[2020-09-19] MEDS: INSULIN SLIDING SCALE (NOVOLOG) 1 VIAL SQ SCH ×4 (06:05→22:53)
[2020-09-19] MEDS: FUROSEMIDE 40 MG/4 ML INJECTABLE VIAL IVPUSH SCH (10:04)
[2020-09-19 10:31] LABS: BASO % 0.6 % (0-2.0); EOS % 1.3 % (0-4.5); HEMATOCRIT 27.2 % (35.4-49); HEMOGLOBIN 8.9 GM/dL (11.7-16.9); LYMPH % 16.7 % (8-40); MCH 29.2 pg (25.7-33.7); MCHC 32.8 g/dl (32.0-35.9); MEAN PLT VOLUME 8.4 fl (7.5-11.1); NEUT % 76.4 % (42.8-82.8); PLATELET COUNT 151 K/MM3 (134-434); RBC 3.06 M/mm3 (4.00-5.60); RDW 16.4 % (11.9-15.9)
[2020-09-19 10:38] LABS: INR 1.26 (0.83-1.09); PROTHROMBIN TIME (PATIENT) 15.2 SEC (9.7-13.0)
[2020-09-19 10:41] LABS: ACTIVATED PTT 34.4 SECONDS (25.2-36.5)
[2020-09-19 10:58] LABS: ALBUMIN 1.8 g/dl (3.4-5.0); BLOOD UREA NITROGEN 28.6 mg/dL (7-18); CALCIUM 8.7 mg/dL (8.5-10.1)
[2020-09-19 11:01] LABS: CREATININE 0.3 mg/dL (0.55-1.3)
[2020-09-19 11:03] LABS: BILIRUBIN,TOTAL 0.3 mg/dL (0.2-1); TOT PROT 5.9 g/dl (6.4-8.2)
[2020-09-19] MEDS: AMINO ACIDS/PROTEIN HYDROLYS 30 ML LIQUID.PKT GT SCH (12:20)
[2020-09-19] MEDS: METOPROLOL TARTRATE 50 MG TABLET (FP) PO SCH ×2 (12:35→22:35)
[2020-09-19] MEDS: ZINC SULFATE 220 MG CAPSULE (FP) PO SCH (12:35)
[2020-09-19] MEDS: DEXAMETHASONE 4 MG TABLET (FP) PO SCH (12:35)
[2020-09-19] MEDS: ASCORBIC ACID 500 MG TABLET (FP) PO SCH (12:35)
[2020-09-19] MEDS: APIXABAN 5 MG TABLET PEG SCH ×2 (12:35→22:35)
[2020-09-19] MEDS: MULTIVIT-MINERALS ORAL LIQUID GT SCH (12:36)
[2020-09-19] MEDS: COLLAGENASE CLOSTRIDIUM HIST. 30 GRAMS TUBE TP SCH (14:33)
[2020-09-19] MEDS: ATORVASTATIN CA 40 MG TABLET (FP) PO SCH (22:35)
[2020-09-19] MEDS: DOXAZOSIN MESYLATE 1 MG TABLET PO SCH (22:35)
[2020-09-20] MEDS ORDERED: PT OWN MED DRAWER 7, Y5N ONE ×4 (01:50→21:33)
[2020-09-20] MEDS: CEFTAZIDIME/AVIBACTAM 2.5 GM in DEXTROSE 5%-WATER - 250 ML IVPB SCH ×3 (02:08→18:35)
[2020-09-20] MEDS: VALPROATE SODIUM 250 MG/5 ML UNIT DOSE CUP GT SCH ×3 (05:35→22:18)
[2020-09-20] MEDS: INSULIN SLIDING SCALE (NOVOLOG) 1 VIAL SQ SCH ×4 (06:04→21:30)
[2020-09-20 08:49] LABS: HEMATOCRIT 25.4 % (35.4-49); HEMOGLOBIN 8.5 GM/dL (11.7-16.9); MCH 29.2 pg (25.7-33.7); MCHC 33.2 g/dl (32.0-35.9); MEAN CELL VOLUME 87.8 fl (80-96); MEAN PLT VOLUME 8.7 fl (7.5-11.1); PLATELET COUNT 162 K/MM3 (134-434); RDW 16.9 % (11.9-15.9); WHITE BLOOD COUNT 6.4 K/mm3 (4.0-10.0)
[2020-09-20 09:18] LABS: CALCIUM 8.2 mg/dL (8.5-10.1)
[2020-09-20 09:20] LABS: MAGNESIUM 2.3 mg/dL (1.8-2.4)
[2020-09-20 09:22] LABS: CREATININE 0.4 mg/dL (0.55-1.3)
[2020-09-20] MEDS: APIXABAN 5 MG TABLET PEG SCH ×2 (11:52→22:18)
[2020-09-20] MEDS: METOPROLOL TARTRATE 50 MG TABLET (FP) PO SCH ×2 (11:52→22:17)
[2020-09-20] MEDS: DEXAMETHASONE 4 MG TABLET (FP) PO SCH (11:52)
[2020-09-20] MEDS: ASCORBIC ACID 500 MG TABLET (FP) PO SCH (11:52)
[2020-09-20] MEDS: FUROSEMIDE 40 MG/4 ML INJECTABLE VIAL IVPUSH SCH (11:52)
[2020-09-20] MEDS: MULTIVIT-MINERALS ORAL LIQUID GT SCH (11:53)
[2020-09-20] MEDS: AMINO ACIDS/PROTEIN HYDROLYS 30 ML LIQUID.PKT GT SCH (11:53)
[2020-09-20] MEDS: ZINC SULFATE 220 MG CAPSULE (FP) PO SCH (11:53)
[2020-09-20] MEDS: COLLAGENASE CLOSTRIDIUM HIST. 30 GRAMS TUBE TP SCH (11:54)
[2020-09-20] MEDS: ATORVASTATIN CA 40 MG TABLET (FP) PO SCH (22:18)
[2020-09-20] MEDS: DOXAZOSIN MESYLATE 1 MG TABLET PO SCH (22:18)
[2020-09-21] MEDS: CEFTAZIDIME/AVIBACTAM 2.5 GM in DEXTROSE 5%-WATER - 250 ML IVPB SCH ×3 (01:24→17:03)
[2020-09-21] MEDS: INSULIN SLIDING SCALE (NOVOLOG) 1 VIAL SQ SCH ×4 (06:02→21:00)
[2020-09-21] MEDS: VALPROATE SODIUM 250 MG/5 ML UNIT DOSE CUP GT SCH ×3 (06:02→21:55)
[2020-09-21] MEDS ORDERED: PT OWN MED DRAWER 7, Y5N ONE ×3 (09:06→21:50)
[2020-09-21] MEDS: AMINO ACIDS/PROTEIN HYDROLYS 30 ML LIQUID.PKT GT SCH (09:10)
[2020-09-21] MEDS: DEXAMETHASONE 4 MG TABLET (FP) PO SCH (09:12)
[2020-09-21] MEDS: METOPROLOL TARTRATE 50 MG TABLET (FP) PO SCH ×2 (09:12→21:55)
[2020-09-21] MEDS: APIXABAN 5 MG TABLET PEG SCH ×2 (09:12→21:55)
[2020-09-21] MEDS: ZINC SULFATE 220 MG CAPSULE (FP) PO SCH (09:12)
[2020-09-21] MEDS: FUROSEMIDE 40 MG/4 ML INJECTABLE VIAL IVPUSH SCH (09:12)
[2020-09-21] MEDS: ASCORBIC ACID 500 MG TABLET (FP) PO SCH (09:12)
[2020-09-21] MEDS: COLLAGENASE CLOSTRIDIUM HIST. 30 GRAMS TUBE TP SCH (09:13)
[2020-09-21] MEDS: MULTIVIT-MINERALS ORAL LIQUID GT SCH (09:13)
[2020-09-21] MEDS ORDERED: INSULIN (NOVOLOG) ASPART 100 UNITS/ML 10ML VIAL ONE ×2 (11:20→16:13)
[2020-09-21] MEDS: ATORVASTATIN CA 40 MG TABLET (FP) PO SCH (21:55)
[2020-09-21] MEDS: DOXAZOSIN MESYLATE 1 MG TABLET PO SCH (22:05)
[2020-09-22] MEDS: CEFTAZIDIME/AVIBACTAM 2.5 GM in DEXTROSE 5%-WATER - 250 ML IVPB SCH ×2 (01:20→11:47)
[2020-09-22] MEDS: VALPROATE SODIUM 250 MG/5 ML UNIT DOSE CUP GT SCH ×3 (05:58→21:01)
[2020-09-22] MEDS: INSULIN SLIDING SCALE (NOVOLOG) 1 VIAL SQ SCH ×4 (06:03→21:36)
[2020-09-22] MEDS: DEXAMETHASONE 4 MG TABLET (FP) PO SCH (10:51)
[2020-09-22] MEDS: AMINO ACIDS/PROTEIN HYDROLYS 30 ML LIQUID.PKT GT SCH (10:51)
[2020-09-22] MEDS: ASCORBIC ACID 500 MG TABLET (FP) PO SCH (10:51)
[2020-09-22] MEDS: METOPROLOL TARTRATE 50 MG TABLET (FP) PO SCH ×2 (10:51→21:01)
[2020-09-22] MEDS: APIXABAN 5 MG TABLET PEG SCH ×2 (10:51→21:01)
[2020-09-22] MEDS: ZINC SULFATE 220 MG CAPSULE (FP) PO SCH (10:51)
[2020-09-22] MEDS: MULTIVIT-MINERALS ORAL LIQUID GT SCH (10:52)
[2020-09-22] MEDS: FUROSEMIDE 40 MG/4 ML INJECTABLE VIAL IVPUSH SCH (10:52)
[2020-09-22] MEDS: COLLAGENASE CLOSTRIDIUM HIST. 30 GRAMS TUBE TP SCH (14:13)
[2020-09-22] MEDS ORDERED: INSULIN (NOVOLOG) ASPART 100 UNITS/ML 10ML VIAL ONE (18:29)
[2020-09-22] MEDS ORDERED: PT OWN MED DRAWER 7, Y5N ONE (20:32)
[2020-09-22] MEDS: ATORVASTATIN CA 40 MG TABLET (FP) PO SCH (21:01)
[2020-09-22] MEDS: DOXAZOSIN MESYLATE 1 MG TABLET PO SCH (21:01)
[2020-09-23] MEDS: VALPROATE SODIUM 250 MG/5 ML UNIT DOSE CUP GT SCH ×3 (05:08→21:23)
[2020-09-23] MEDS: INSULIN SLIDING SCALE (NOVOLOG) 1 VIAL SQ SCH ×4 (06:03→21:36)
[2020-09-23] MEDS: ASCORBIC ACID 500 MG TABLET (FP) PO SCH (10:59)
[2020-09-23] MEDS: FUROSEMIDE 40 MG/4 ML INJECTABLE VIAL IVPUSH SCH (11:00)
[2020-09-23] MEDS: ZINC SULFATE 220 MG CAPSULE (FP) PO SCH (11:00)
[2020-09-23] MEDS: METOPROLOL TARTRATE 50 MG TABLET (FP) PO SCH ×2 (11:00→21:23)
[2020-09-23] MEDS: AMINO ACIDS/PROTEIN HYDROLYS 30 ML LIQUID.PKT GT SCH (11:00)
[2020-09-23] MEDS: APIXABAN 5 MG TABLET PEG SCH ×2 (11:01→21:23)
[2020-09-23] MEDS ORDERED: INSULIN (NOVOLOG) ASPART 100 UNITS/ML 10ML VIAL ONE (11:04)
[2020-09-23] MEDS: MULTIVIT-MINERALS ORAL LIQUID GT SCH (13:10)
[2020-09-23] MEDS: COLLAGENASE CLOSTRIDIUM HIST. 30 GRAMS TUBE TP SCH (13:10)
[2020-09-23] MEDS: ATORVASTATIN CA 40 MG TABLET (FP) PO SCH (21:23)
[2020-09-23] MEDS: DOXAZOSIN MESYLATE 1 MG TABLET PO SCH (21:24)
[2020-09-24] MEDS: VALPROATE SODIUM 250 MG/5 ML UNIT DOSE CUP GT SCH ×3 (05:17→22:50)
[2020-09-24] MEDS: INSULIN SLIDING SCALE (NOVOLOG) 1 VIAL SQ SCH ×4 (06:02→22:51)
[2020-09-24] MEDS: AMINO ACIDS/PROTEIN HYDROLYS 30 ML LIQUID.PKT GT SCH (10:54)
[2020-09-24] MEDS: ASCORBIC ACID 500 MG TABLET (FP) PO SCH (10:54)
[2020-09-24] MEDS: APIXABAN 5 MG TABLET PEG SCH ×2 (10:54→22:51)
[2020-09-24] MEDS: METOPROLOL TARTRATE 50 MG TABLET (FP) PO SCH ×2 (10:54→22:50)
[2020-09-24] MEDS: MULTIVIT-MINERALS ORAL LIQUID GT SCH (10:54)
[2020-09-24] MEDS: ZINC SULFATE 220 MG CAPSULE (FP) PO SCH (10:54)
[2020-09-24] MEDS: FUROSEMIDE 40 MG/4 ML INJECTABLE VIAL IVPUSH SCH (10:55)
[2020-09-24] MEDS: COLLAGENASE CLOSTRIDIUM HIST. 30 GRAMS TUBE TP SCH (10:55)
[2020-09-24] MEDS ORDERED: PT OWN MED DRAWER 7, Y5N ONE (22:20)
[2020-09-24] MEDS: DOXAZOSIN MESYLATE 1 MG TABLET PO SCH (22:51)
[2020-09-24] MEDS: ATORVASTATIN CA 40 MG TABLET (FP) PO SCH (22:51)
[2020-09-25] MEDS: VALPROATE SODIUM 250 MG/5 ML UNIT DOSE CUP GT SCH ×3 (06:12→22:41)
[2020-09-25] MEDS: INSULIN SLIDING SCALE (NOVOLOG) 1 VIAL SQ SCH ×4 (06:12→22:41)
[2020-09-25 10:44] LABS: BASO % 0.5 % (0-2.0); EOS % 1.4 % (0-4.5); HEMATOCRIT 27.8 % (35.4-49); HEMOGLOBIN 9.4 GM/dL (11.7-16.9); LYMPH % 17.5 % (8-40); MCH 29.7 pg (25.7-33.7); MCHC 33.7 g/dl (32.0-35.9); MEAN CELL VOLUME 88.3 fl (80-96); MEAN PLT VOLUME 7.9 fl (7.5-11.1); MONO % 8.7 % (3.8-10.2); NEUT % 71.9 % (42.8-82.8); PLATELET COUNT 220 K/MM3 (134-434); RBC 3.15 M/mm3 (4.00-5.60); RDW 17.6 % (11.9-15.9); WHITE BLOOD COUNT 6.5 K/mm3 (4.0-10.0)
[2020-09-25 11:06] LABS: BLOOD UREA NITROGEN 34.6 mg/dL (7-18)
[2020-09-25 11:09] LABS: CREATININE 0.4 mg/dL (0.55-1.3)
[2020-09-25 11:11] LABS: BILIRUBIN,TOTAL 0.7 mg/dL (0.2-1); TOT PROT 6.5 g/dl (6.4-8.2)
[2020-09-25 11:13] LABS: ALBUMIN 2.2 g/dl (3.4-5.0)
[2020-09-25] MEDS ORDERED: PT OWN MED DRAWER 7, Y5N ONE (11:26)
[2020-09-25] MEDS: METOPROLOL TARTRATE 50 MG TABLET (FP) PO SCH ×2 (11:27→22:41)
[2020-09-25] MEDS: ZINC SULFATE 220 MG CAPSULE (FP) PO SCH (11:27)
[2020-09-25] MEDS: FUROSEMIDE 40 MG/4 ML INJECTABLE VIAL IVPUSH SCH (11:27)
[2020-09-25] MEDS: COLLAGENASE CLOSTRIDIUM HIST. 30 GRAMS TUBE TP SCH (11:28)
[2020-09-25] MEDS: APIXABAN 5 MG TABLET PEG SCH ×2 (11:28→22:41)
[2020-09-25] MEDS: ASCORBIC ACID 500 MG TABLET (FP) PO SCH (11:28)
[2020-09-25] MEDS: AMINO ACIDS/PROTEIN HYDROLYS 30 ML LIQUID.PKT GT SCH (11:28)
[2020-09-25] MEDS: MULTIVIT-MINERALS ORAL LIQUID GT SCH (11:28)
[2020-09-25] MEDS: DOXAZOSIN MESYLATE 1 MG TABLET PO SCH (22:41)
[2020-09-25] MEDS: ATORVASTATIN CA 40 MG TABLET (FP) PO SCH (22:41)
[2020-09-26] MEDS: INSULIN SLIDING SCALE (NOVOLOG) 1 VIAL SQ SCH ×4 (06:10→21:16)
[2020-09-26] MEDS: VALPROATE SODIUM 250 MG/5 ML UNIT DOSE CUP GT SCH ×3 (06:10→21:03)
[2020-09-26 09:54] LABS: BASO % 0.4 % (0-2.0); EOS % 1.6 % (0-4.5); HEMATOCRIT 27.7 % (35.4-49); HEMOGLOBIN 9.3 GM/dL (11.7-16.9); MCH 29.8 pg (25.7-33.7); MCHC 33.6 g/dl (32.0-35.9); MEAN CELL VOLUME 88.6 fl (80-96); MEAN PLT VOLUME 8.2 fl (7.5-11.1); MONO % 8.8 % (3.8-10.2); NEUT % 70.2 % (42.8-82.8); PLATELET COUNT 208 K/MM3 (134-434); RBC 3.13 M/mm3 (4.00-5.60); RDW 18.3 % (11.9-15.9); WHITE BLOOD COUNT 6.5 K/mm3 (4.0-10.0)
[2020-09-26 10:06] LABS: CALCIUM 8.9 mg/dL (8.5-10.1)
[2020-09-26 10:07] LABS: ALBUMIN 2.1 g/dl (3.4-5.0); BLOOD UREA NITROGEN 37.8 mg/dL (7-18)
[2020-09-26 10:10] LABS: CREATININE 0.4 mg/dL (0.55-1.3)
[2020-09-26 10:12] LABS: BILIRUBIN,TOTAL 1.3 mg/dL (0.2-1); TOT PROT 6.2 g/dl (6.4-8.2)
[2020-09-26] MEDS: MULTIVIT-MINERALS ORAL LIQUID GT SCH (12:01)
[2020-09-26] MEDS: AMINO ACIDS/PROTEIN HYDROLYS 30 ML LIQUID.PKT GT SCH (12:02)
[2020-09-26] MEDS: METOPROLOL TARTRATE 50 MG TABLET (FP) PO SCH ×2 (12:02→21:03)
[2020-09-26] MEDS: APIXABAN 5 MG TABLET PEG SCH ×2 (12:02→21:03)
[2020-09-26] MEDS: FUROSEMIDE 40 MG/4 ML INJECTABLE VIAL IVPUSH SCH (12:02)
[2020-09-26] MEDS: ASCORBIC ACID 500 MG TABLET (FP) PO SCH (12:02)
[2020-09-26] MEDS: ZINC SULFATE 220 MG CAPSULE (FP) PO SCH (12:02)
[2020-09-26] MEDS: COLLAGENASE CLOSTRIDIUM HIST. 30 GRAMS TUBE TP SCH (12:03)
[2020-09-26] MEDS: ATORVASTATIN CA 40 MG TABLET (FP) PO SCH (21:03)
[2020-09-26] MEDS: DOXAZOSIN MESYLATE 1 MG TABLET PO SCH (21:05)
[2020-09-26] MEDS ORDERED: PT OWN MED DRAWER 7, Y5N ONE (21:05)
[2020-09-27] MEDS: ACETAMINOPHEN 650 MG/20.3 ML ORAL SOLUTION (CUPS) GT PRN ×3 (05:29→19:54)
[2020-09-27] MEDS: VALPROATE SODIUM 250 MG/5 ML UNIT DOSE CUP GT SCH ×3 (05:29→22:35)
[2020-09-27] MEDS: INSULIN SLIDING SCALE (NOVOLOG) 1 VIAL SQ SCH ×4 (06:05→23:16)
[2020-09-27] MEDS ORDERED: INSULIN (NOVOLOG) ASPART 100 UNITS/ML 10ML VIAL ONE (06:20)
[2020-09-27] MEDS: ZINC SULFATE 220 MG CAPSULE (FP) PO SCH (09:07)
[2020-09-27] MEDS: METOPROLOL TARTRATE 50 MG TABLET (FP) PO SCH ×3 (09:07→22:36)
[2020-09-27] MEDS: AMINO ACIDS/PROTEIN HYDROLYS 30 ML LIQUID.PKT GT SCH (09:07)
[2020-09-27] MEDS: ASCORBIC ACID 500 MG TABLET (FP) PO SCH (09:07)
[2020-09-27] MEDS: APIXABAN 5 MG TABLET PEG SCH ×2 (09:07→22:36)
[2020-09-27] MEDS: FUROSEMIDE 40 MG/4 ML INJECTABLE VIAL IVPUSH SCH (09:07)
[2020-09-27 09:18] LABS: BASO % 0.4 % (0-2.0); EOS % 1.1 % (0-4.5); HEMATOCRIT 28.7 % (35.4-49); HEMOGLOBIN 9.5 GM/dL (11.7-16.9); LYMPH % 18.3 % (8-40); MCH 29.5 pg (25.7-33.7); MCHC 33.1 g/dl (32.0-35.9); MEAN CELL VOLUME 89.1 fl (80-96); MEAN PLT VOLUME 8.1 fl (7.5-11.1); MONO % 8.6 % (3.8-10.2); NEUT % 71.6 % (42.8-82.8); PLATELET COUNT 199 K/MM3 (134-434); RBC 3.22 M/mm3 (4.00-5.60); RDW 17.6 % (11.9-15.9); WHITE BLOOD COUNT 6.4 K/mm3 (4.0-10.0)
[2020-09-27 09:44] LABS: CREATININE 0.4 mg/dL (0.55-1.3)
[2020-09-27 09:47] LABS: BLOOD UREA NITROGEN 40.8 mg/dL (7-18); CALCIUM 8.6 mg/dL (8.5-10.1)
[2020-09-27] MEDS ORDERED: FUROSEMIDE 40 MG/5 ML UNIT-DOSE CUP PEG SCH (11:00)
[2020-09-27] MEDS: MULTIVIT-MINERALS ORAL LIQUID GT SCH (11:39)
[2020-09-27] MEDS: COLLAGENASE CLOSTRIDIUM HIST. 30 GRAMS TUBE TP SCH (12:27)
[2020-09-27] MEDS ORDERED: PT OWN MED DRAWER 7, Y5N ONE (20:36)
[2020-09-27] MEDS: DOXAZOSIN MESYLATE 1 MG TABLET PO SCH (22:35)
[2020-09-27] MEDS: ATORVASTATIN CA 40 MG TABLET (FP) PO SCH (22:35)
[2020-09-28] MEDS: VALPROATE SODIUM 250 MG/5 ML UNIT DOSE CUP GT SCH ×2 (05:12→13:50)
[2020-09-28] MEDS: INSULIN SLIDING SCALE (NOVOLOG) 1 VIAL SQ SCH ×3 (06:04→16:19)
[2020-09-28] MEDS: AMINO ACIDS/PROTEIN HYDROLYS 30 ML LIQUID.PKT GT SCH (09:27)
[2020-09-28] MEDS: APIXABAN 5 MG TABLET PEG SCH (10:27)
[2020-09-28] MEDS: MULTIVIT-MINERALS ORAL LIQUID GT SCH (10:27)
[2020-09-28] MEDS: METOPROLOL TARTRATE 50 MG TABLET (FP) PO SCH (10:27)
[2020-09-28] MEDS: ASCORBIC ACID 500 MG TABLET (FP) PO SCH (10:27)
[2020-09-28] MEDS: ZINC SULFATE 220 MG CAPSULE (FP) PO SCH (10:28)
[2020-09-28] MEDS: ACETAMINOPHEN 650 MG/20.3 ML ORAL SOLUTION (CUPS) GT PRN (10:29)
[2020-09-28] MEDS ORDERED: FUROSEMIDE 40 MG/5 ML UNIT-DOSE CUP PEG SCH (11:00)
[2020-09-28 11:55] LABS: HEMATOCRIT 29.8 % (35.4-49); HEMOGLOBIN 9.7 GM/dL (11.7-16.9); MCH 29.3 pg (25.7-33.7); MCHC 32.6 g/dl (32.0-35.9); MEAN CELL VOLUME 89.9 fl (80-96); MEAN PLT VOLUME 8.2 fl (7.5-11.1); PLATELET COUNT 225 K/MM3 (134-434); RBC 3.32 M/mm3 (4.00-5.60); RDW 17.6 % (11.9-15.9); WHITE BLOOD COUNT 7.3 K/mm3 (4.0-10.0)
[2020-09-28 12:19] LABS: BLOOD UREA NITROGEN 39.8 mg/dL (7-18)
[2020-09-28 12:22] LABS: CREATININE 0.4 mg/dL (0.55-1.3)
[2020-09-28] MEDS: COLLAGENASE CLOSTRIDIUM HIST. 30 GRAMS TUBE TP SCH (13:00)
[2020-09-28 15:46] VITALS: BP 119/66; PULSE 94; TEMP 97.2
== END 2020-09-28 18:19 | DRG 870 ==
LOC: JER 14:48 → JERBED 21:58 → J5S 09-05 11:00
PROVIDERS: ADMIT Hospitalist; ATTEND Internal Medicine
PROC: 5A1955Z Respiratory Ventilation, Greater than 96 Consecutive Hours (ICD-10-PCS; principal; 2020-09-04)
PROC: 30233N1 Transfusion of Nonautologous Red Blood Cells into Peripheral Vein, Percutaneous Approach (ICD-10-PCS; 2020-09-04)
PROC: 0B21XFZ Change Tracheostomy Device in Trachea, External Approach (ICD-10-PCS; 2020-09-08)
PROC: 0WHB3YZ Insertion of Other Device into Left Pleural Cavity, Percutaneous Approach (ICD-10-PCS; 2020-09-11)
PROC: 0WPBX0Z Removal of Drainage Device from Left Pleural Cavity, External Approach (ICD-10-PCS; 2020-09-28)
DX: A41.89 Other specified sepsis (principal); L89.154 Pressure ulcer of sacral region, stage 4; J96.21 Acute and chronic respiratory failure with hypoxia; U07.1 COVID-19; J96.22 Acute and chronic respiratory failure with hypercapnia; J69.0 Pneumonitis due to inhalation of food and vomit; G93.41 Metabolic encephalopathy; G92 Toxic encephalopathy; N39.0 Urinary tract infection, site not specified; T83.511A Infection and inflammatory reaction due to indwelling urethral catheter, initial encounter; R64 Cachexia; E87.0 Hyperosmolality and hypernatremia; E87.2 Acidosis; J93.9 Pneumothorax, unspecified; D62 Acute posthemorrhagic anemia; T85.638A Leakage of other specified internal prosthetic devices, implants and grafts, initial encounter; Z99.11 Dependence on respirator [ventilator] status; Z68.1 Body mass index [BMI] 19.9 or less, adult; E87.1 Hypo-osmolality and hyponatremia; Z93.50 Unspecified cystostomy status; Z93.0 Tracheostomy status; I48.91 Unspecified atrial fibrillation; I10 Essential (primary) hypertension; K21.9 Gastro-esophageal reflux disease without esophagitis; E11.9 Type 2 diabetes mellitus without complications; R56.9 Unspecified convulsions; R65.20 Severe sepsis without septic shock; Y83.9 Surgical procedure, unspecified as the cause of abnormal reaction of the patient, or of later complication, without mention of misadventure at the time of the procedure; E86.0 Dehydration; F03.90 Unspecified dementia, unspecified severity, without behavioral disturbance, psychotic disturbance, mood disturbance, and anxiety; E78.5 Hyperlipidemia, unspecified; E87.5 Hyperkalemia; R31.0 Gross hematuria
CPT/HCPCS: 36415; 36430; 36511; 36600; 71045-TC-FY; 74018-TC-FY; 80048; 80053; 80164; 81003; 82272; 82728; 82803; 82962; 83540; 83550; 83605; 83615; 83735; 84100; 84484; 85025; 85027; 85045; 85379; 85610; 85730; 86140; 86769; 86850; 86900; 86901; 86922; 87040; 87070; 87077; 87086; 87184; 87186; 87205; 87804; 93005; 93010; 94002; 99285-25; C9803; G0480; J0131; J1100; P9038; P9058; U0003; U0005